=== PATIENT | female | born 1990 | race Caucasian/White ===

== ENCOUNTER 2017-10-20 18:00 | Emergency (ER) | payer MEDICAID ==
[~2017-10-20] VITALS: Ht 180.3 cm; Wt 101.6 kg
[2017-10-20 19:18] VITALS: BP 137/87
== END 2017-10-20 19:19 | disposition home or self-care (01) ==
LOC: ED 18:00
DX: J06.9 Acute upper respiratory infection, unspecified (principal); J01.90 Acute sinusitis, unspecified

== ENCOUNTER 2018-05-19 20:40 | Emergency (ER) | payer SELFPAY ==
[~2018-05-19] VITALS: Ht 154.9 cm; Wt 108.0 kg
[2018-05-19 20:59] VITALS: Ht 154.9 cm; Wt 108.0 kg
[2018-05-19 23:09] VITALS: BP 128/85
== END 2018-05-19 23:09 | disposition home or self-care (01) ==
LOC: ED 20:40
DX: S50.861A Insect bite (nonvenomous) of right forearm, initial encounter (principal); L08.9 Local infection of the skin and subcutaneous tissue, unspecified; Z88.0 Allergy status to penicillin
CPT/HCPCS: J7512

== ENCOUNTER 2018-10-13 14:50 | Emergency (ER) | payer SELFPAY ==
[~2018-10-13] VITALS: Ht 154.9 cm; Wt 112.9 kg
[2018-10-13 14:52] VITALS: Ht 154.9 cm; Wt 112.9 kg
[2018-10-13 15:37] LABS: BASOPHIL % 0.6 % (0-2); PLATELET COUNT 346 x10^3mcL (130-400)
[2018-10-13 15:38] LABS: RED CELL DISTRIBUTION WIDTH 19.6 % (11.5-14.5)
[2018-10-13 15:45] LABS: CALCIUM 8.7 mg/dL (8.5-10.1); CARBON DIOXIDE 29.4 mmol/L (21-32); CHLORIDE SERUM 103 mmol/L (98-107); CREATININE SERUM 0.8 mg/dL (0.6-1.0); GFR1 > 60 mL/min; GLUCOSE SERUM 92 mg/dL (74-106); POTASSIUM SERUM 3.8 mmol/L (3.5-5.1); SODIUM SERUM 139 mmol/L (136-145)
[2018-10-13 16:58] LABS: AMPHETAMINE QUAL UR NONE DETECTED (See below)
[2018-10-13 19:49] VITALS: BP 106/71
== END 2018-10-13 19:49 | disposition home or self-care (01) ==
LOC: ED 14:50
PROVIDERS: Emergency Medicine
DX: R07.89 Other chest pain (principal); K21.9 Gastro-esophageal reflux disease without esophagitis; Z88.0 Allergy status to penicillin
CPT/HCPCS: 36415; 85378; J1885; Q0092

== ENCOUNTER 2019-01-16 07:03 | Emergency (ER) | payer MEDICAID ==
[~2019-01-16] VITALS: Ht 154.9 cm; Wt 113.4 kg
[2019-01-16 07:14] VITALS: BP 133/84; Ht 154.9 cm; Wt 113.4 kg
== END 2019-01-16 09:27 | disposition home or self-care (01) ==
LOC: ED 07:03
DX: R07.89 Other chest pain (principal); K21.9 Gastro-esophageal reflux disease without esophagitis; Z88.0 Allergy status to penicillin
CPT/HCPCS: Q0092

== ENCOUNTER 2019-02-07 22:44 | Emergency (ER) | payer MEDICAID ==
[~2019-02-07] VITALS: Ht 154.9 cm; Wt 112.5 kg
[2019-02-07 22:56] VITALS: Ht 154.9 cm; Wt 112.5 kg
[2019-02-07 23:27] LABS: BASOPHIL % 1.6 % (0-2); PLATELET COUNT 312 x10^3mcL (130-400)
[2019-02-07 23:30] LABS: RED CELL DISTRIBUTION WIDTH 19.3 % (11.5-14.5)
[2019-02-08 01:53] VITALS: BP 113/76
== END 2019-02-08 01:48 | disposition home or self-care (01) ==
LOC: ED 22:44
PROVIDERS: Emergency Medicine
DX: N94.6 Dysmenorrhea, unspecified (principal); D64.9 Anemia, unspecified; Z88.0 Allergy status to penicillin
CPT/HCPCS: 36415; Q0092

== ENCOUNTER 2019-04-12 05:03 | Emergency (ER) | payer MEDICAID ==
[~2019-04-12] VITALS: Ht 154.9 cm; Wt 114.4 kg
[2019-04-12 06:07] LABS: PLATELET COUNT 339 x10^3mcL (130-400)
[2019-04-12 06:16] LABS: CARBON DIOXIDE 25.4 mmol/L (21-32); CHLORIDE SERUM 104 mmol/L (98-107); CREATININE SERUM 0.8 mg/dL (0.6-1.0); GFR1 > 60 mL/min; GLUCOSE SERUM 101 mg/dL (74-106); SODIUM SERUM 139 mmol/L (136-145)
[2019-04-12 06:21] LABS: ALBUMIN 3.6 g/dL (3.4-5.0); ALKALINE PHOSPHATASE 90 U/L (46-116); ALT/SGPT 29 U/L (14-59); AST/SGOT 22 U/L (15-37); BILIRUBIN TOTAL 0.17 mg/dL (0.20-1.00); TOTAL PROTEIN, SERUM 7.9 g/dL (6.4-8.2)
[2019-04-12 06:34] VITALS: BP 133/68
== END 2019-04-12 06:34 | disposition home or self-care (01) ==
LOC: ED 05:03
PROVIDERS: Emergency Medicine
DX: R10.2 Pelvic and perineal pain (principal); M54.5 Low back pain; R10.31 Right lower quadrant pain; R10.32 Left lower quadrant pain; Z88.0 Allergy status to penicillin
CPT/HCPCS: 36415

== ENCOUNTER 2019-05-12 06:03 | Emergency (ER) | payer MEDICAID ==
[~2019-05-12] VITALS: Ht 154.9 cm; Wt 116.6 kg
[2019-05-12 06:12] VITALS: Ht 154.9 cm; Wt 116.6 kg
[2019-05-12 06:56] LABS: BASOPHIL % 0.9 % (0-2); PLATELET COUNT 285 x10^3mcL (130-400)
[2019-05-12 07:07] LABS: RED CELL DISTRIBUTION WIDTH 19.4 % (11.5-14.5)
[2019-05-12 07:08] LABS: rbc morphology (normal/abnorm) ABNORMAL (NORMAL)
[2019-05-12 07:10] LABS: CALCIUM 8.5 mg/dL (8.5-10.1); CARBON DIOXIDE 23.8 mmol/L (21-32); CHLORIDE SERUM 106 mmol/L (98-107); CREATININE SERUM 0.8 mg/dL (0.6-1.0); GFR1 > 60 mL/min; GLUCOSE SERUM 99 mg/dL (74-106); POTASSIUM SERUM 3.8 mmol/L (3.5-5.1); SODIUM SERUM 141 mmol/L (136-145)
[2019-05-12 07:17] LABS: ALBUMIN 3.6 g/dL (3.4-5.0); ALKALINE PHOSPHATASE 76 U/L (46-116); ALT/SGPT 26 U/L (14-59); AST/SGOT 19 U/L (15-37); BILIRUBIN TOTAL 0.2 mg/dL (0.20-1.00); TOTAL PROTEIN, SERUM 7.7 g/dL (6.4-8.2)
[2019-05-12 07:52] VITALS: BP 134/87
== END 2019-05-12 07:52 | disposition home or self-care (01) ==
LOC: ED 06:03
PROVIDERS: Emergency Medicine
DX: N93.9 Abnormal uterine and vaginal bleeding, unspecified (principal); D64.9 Anemia, unspecified; Z88.0 Allergy status to penicillin
CPT/HCPCS: 36415

== ENCOUNTER 2019-06-03 06:20 | Emergency (ER) | payer MEDICAID ==
[~2019-06-03] VITALS: Ht 154.9 cm; Wt 116.6 kg
[2019-06-03 07:18] LABS: CALCIUM 8.8 mg/dL (8.5-10.1); CARBON DIOXIDE 23.3 mmol/L (21-32); CHLORIDE SERUM 105 mmol/L (98-107); CREATININE SERUM 0.8 mg/dL (0.6-1.0); GFR1 > 60 mL/min; GLUCOSE SERUM 95 mg/dL (74-106); POTASSIUM SERUM 3.9 mmol/L (3.5-5.1); SODIUM SERUM 139 mmol/L (136-145)
[2019-06-03 07:23] LABS: ALBUMIN 3.5 g/dL (3.4-5.0); ALKALINE PHOSPHATASE 89 U/L (46-116); ALT/SGPT 25 U/L (14-59); AST/SGOT 19 U/L (15-37); BILIRUBIN TOTAL 0.22 mg/dL (0.20-1.00); LIPASE 98 IU/L (73-393); TOTAL PROTEIN, SERUM 7.6 g/dL (6.4-8.2)
[2019-06-03 07:34] LABS: BASOPHIL % 0.3 % (0-2); PLATELET COUNT 297 x10^3mcL (130-400)
[2019-06-03 07:45] LABS: RED CELL DISTRIBUTION WIDTH 19.2 % (11.5-14.5); rbc morphology (normal/abnorm) ABNORMAL (NORMAL)
[2019-06-03 08:34] VITALS: BP 107/74
== END 2019-06-03 08:34 | disposition home or self-care (01) ==
LOC: ED 06:20
PROVIDERS: Emergency Medicine
DX: K21.9 Gastro-esophageal reflux disease without esophagitis (principal); F12.10 Cannabis abuse, uncomplicated; Z86.2 Personal history of diseases of the blood and blood-forming organs and certain disorders involving the immune mechanism; Z88.0 Allergy status to penicillin
CPT/HCPCS: 36415; Q0092

== ENCOUNTER 2019-08-13 07:12 | Emergency (ER) | payer MEDICAID ==
[~2019-08-13] VITALS: Ht 154.9 cm; Wt 116.1 kg
[2019-08-13 07:27] VITALS: Ht 154.9 cm; Wt 116.1 kg
[2019-08-13 08:17] LABS: BASOPHIL % 0.5 % (0-2); PLATELET COUNT 343 x10^3mcL (130-400)
[2019-08-13 08:27] LABS: RED CELL DISTRIBUTION WIDTH 18.6 % (11.5-14.5)
[2019-08-13 08:28] LABS: rbc morphology (normal/abnorm) ABNORMAL (NORMAL)
[2019-08-13 09:48] LABS: ERYTHROCYTE SED RATE 41 mm/hr (0-20)
[2019-08-13 10:37] VITALS: BP 110/61
== END 2019-08-13 10:37 | disposition home or self-care (01) ==
LOC: ED 07:12
PROVIDERS: Emergency Medicine
DX: M25.561 Pain in right knee (principal); M79.89 Other specified soft tissue disorders; E66.9 Obesity, unspecified; Z86.2 Personal history of diseases of the blood and blood-forming organs and certain disorders involving the immune mechanism; Z88.0 Allergy status to penicillin
CPT/HCPCS: 36415; J1885

== ENCOUNTER 2019-10-29 00:16 | Emergency (ER) | payer MEDICAID ==
[~2019-10-29] VITALS: Ht 154.9 cm; Wt 121.3 kg
[2019-10-29 00:33] VITALS: Ht 154.9 cm; Wt 121.3 kg
[2019-10-29 04:22] VITALS: BP 116/56
== END 2019-10-29 04:22 | disposition home or self-care (01) ==
LOC: ED 00:16
DX: S40.861A Insect bite (nonvenomous) of right upper arm, initial encounter (principal); S30.861A Insect bite (nonvenomous) of abdominal wall, initial encounter; Z88.0 Allergy status to penicillin; W57.XXXA Bitten or stung by nonvenomous insect and other nonvenomous arthropods, initial encounter; Y93.89 Activity, other specified; Y92.89 Other specified places as the place of occurrence of the external cause; Y99.8 Other external cause status